=== PATIENT | male | born 1985 | race Caucasian/White ===

== ENCOUNTER 2023-07-20 20:40 | Emergency (ER) | payer OTHER ==
[~2023-07-20] VITALS: Ht 182.9 cm; Wt 81.6 kg
[2023-07-20 20:58] VITALS: BP 136/88; TEMP 98.9; O2SAT 97
[2023-07-20 21:45] LABS: BASOPHILS % (AUTO) 0.5 % (0.0-2.0); EOSINOPHILS # (AUTO) 0.4 K/uL (0.0-0.7); EOSINOPHILS % (AUTO) 3.6 % (0.0-6.0); HEMATOCRIT 49 % (39-51); HEMOGLOBIN 16.6 g/dL (13.5-17.5); LYMPHOCYTES # (AUTO) 2.5 K/uL (0.8-4.8); LYMPHOCYTES % (AUTO) 23.1 % (20.0-44.0); MEAN CORPUSCULAR HEMOGLOBIN 33 PG (26.0-33.0); MEAN CORPUSCULAR HGB CONC 34 g/dl (31.0-36.0); MEAN CORPUSCULAR VOLUME 98 fL (80-96); MONOCYTES % (AUTO) 9.3 % (2.0-12.0); NEUTROPHILS # (AUTO) 6.8 K/uL (1.8-8.9); NEUTROPHILS % (AUTO) 63.5 % (43.0-81.0); PLATELET COUNT (AUTO) 209 K/uL (150-450); RED CELL DISTRIBUTION WIDTH 13.2 % (11.5-15.0); WHITE BLOOD COUNT (AUTO) 10.8 K/uL (4.3-11.0)
[2023-07-20 21:58] LABS: CALCIUM, SERUM 9.1 mg/dL (8.5-10.1); CARBON DIOXIDE 26 mmol/L (21-32); CHLORIDE 102 mmol/L (98-107); GLUCOSE 77 mg/dL (74-106); POTASSIUM 3.6 mmol/L (3.5-5.1); SODIUM SERUM 137 mmol/L (136-145); UREA NITROGEN, BLOOD 16 mg/dL (7-18)
[2023-07-20 22:04] LABS: NT-PRO BNP 47 pg/mL (0-125)
[2023-07-20] MEDS ORDERED: IV NS 0.9% 250 ML IV ONE (22:20)
[2023-07-20] MEDS ORDERED: CT SWABBABLE VALVE TRANS SET 1 EA INFUS.SET MC ONE (22:20)
[2023-07-20] MEDS ORDERED: IOHEXOL-350 100 ML VIAL IV ONE (22:20)
== END 2023-07-20 22:55 | disposition left against medical advice (07) ==
LOC: ER 20:48
DX: I82.411 Acute embolism and thrombosis of right femoral vein (principal); Z88.0 Allergy status to penicillin; Z60.2 Problems related to living alone
CPT/HCPCS: 99284; 93970; 93005 ×2; 85025; 80048; 85378; 36415; 84484; 83880; J7050; Q9967